=== PATIENT | male | born 1980 | race Caucasian/White ===

== ENCOUNTER 2019-12-09 12:04 | Outpatient (NON) | payer OTHER, SELFPAY ==
[2019-12-09 23:09] LABS: SARS-CoV-2 RNA PCR Negative
== END 2019-12-09 12:05 ==
PROVIDERS: PCP Family Medicine; Visit Provider Physician Assistant
DX: Z20.828 Contact with and (suspected) exposure to other viral communicable diseases (principal)
CPT/HCPCS: 87635; C9803; U0003

== ENCOUNTER 2020-02-07 11:34 | Emergency (ER) | payer OTHER, SELFPAY ==
[2020-02-07 11:45] VITALS: BP 154/77; PULSE 83; RESP 20; TEMP 36.3; O2SAT 98
--- NOTE | 2020-02-07 11:58 | ED.GENADULT ---
HPI - General Adult General Chief complaint: Upper Respiratory Infection Stated complaint: pos sinus infection Source: patient Mode of arrival: ambulatory Limitations: no limitations History of Present Illness HPI narrative: Patient presents for evaluation of sinus congestion for the last week. He states that he has a thick yellow/green mucopurulent drainage from both nares. Is experiencing sore throat, bilateral otalgia and fatigue. He denies any fever, chills, nausea, vomiting, diarrhea. He has experienced a cough but he smokes 1 pack/day. No recent sick exposures. He has a history of recurrent sinusitis that has required antibiotic therapy in the past. He typically uses Flonase and Zyrtec but he is out of both medications. Over the last week he has been using Mucinex and DayQuil with some improvement. He attempted to wait to be seen until it was absolutely necessary. No additional complaints or concerns. He has seen ENT in the past and they indicated that he does not need any type of sinus surgery. They recommended that he do nasal rinses and use Flonase/Zyrtec. Related Data Home Medications Medication Instructions Recorded Confirmed lisinopril 20 mg DAILY 02/07/20 02/07/20 Allergies Allergy/AdvReac Type Severity Reaction Status Date / Time No Known Allergies Allergy Unknown Unverified 03/03/15 17:54 Review of Systems Review of Systems: Narrative: CONSTITUTIONAL: Denies fever, chills, or sweats. EYES: Denies visual changes, redness, or discharge. ENT: Reports sinus congestion with mucopurulent drainage from both nares. Reports sore throat and otalgia bilaterally. CARDIOVASCULAR: Denies chest pain, palpitations, or edema. RESPIRATORY: Reports cough. Denies dyspnea. GASTROINTESTINAL: Denies abdominal pain, nausea, vomiting, or diarrhea. GENITOURINARY: Denies dysuria or hematuria. SKIN: Denies rash or itching. MUSCULOSKELETAL: Denies back pain, joint pain, or myalgia. NEUROLOGIC: Denies headache, numbness, dizziness, or weakness. PSYCHIATRIC: Denies anxiety or depression. [facility] Past Medical History Medical History (Updated 02/07/20 @ 12:03 by Oz Mariee, MACO, RICHI) Hypertension Tobacco use disorder Surgical History Surgical History (Updated 02/07/20 @ 12:00 by Oz Mariee, MACO, ) No pertinent past surgical history Family History Family History Father Hypertension Mother Hyperlipidemia Social History Social History (Updated 02/07/20 @ 12:01 by Oz Mariee [facility], ) Smoking packs per day: 1 Smoking cigarettes per day: 20.0 Smoking status: Current every day smoker Tobacco type: cigarettes Alcohol intake: current Alcohol use details: Socially Substance use: never Living arrangements: alone Gender identity (if verbalized by the patient): Male Spiritual care concerns: No Exam Narrative: Exam Narrative: GENERAL: Well-appearing, well-nourished, and in no acute distress. HEAD: Normocephalic, atraumatic. EYES: PERRLA and EOMI. ENT: Nares clear, no rhinorrhea or epistaxis. Mucous membranes moist. Oropharynx without tonsillar hypertrophy exudate or other lesions. Bilateral TMs pearly doll nonbulging NECK: Supple. No adenopathy or masses. No carotid bruits or JVD CHEST: Clear to auscultation. No respiratory distress. No wheezes rales or rhonchi HEART: Regular rate and rhythm. No murmur heard. Normal peripheral pulses. ABDOMEN: Soft, nontender, nondistended, normal active bowel sounds. EXTREMITIES: Normal range of motion. No edema. SKIN: Warm, dry, no rash. NEURO: No focal deficits. Alert and oriented x3. PSYCH: Normal mood and affect. Course Course Emergency Course: 39-year-old male with history of recurrent sinusitis who presents with symptoms consistent with acute bacterial rhinosinusitis. He has no adventitious lung sounds warranting chest x-ray. Strep was negative. He was advised to
== END 2020-02-07 12:09 | disposition home or self-care (01) ==
PROVIDERS: Emergency Provider Nurse Practitioner; PCP Family Medicine
DX: J01.90 Acute sinusitis, unspecified (principal); F17.210 Nicotine dependence, cigarettes, uncomplicated; I10 Essential (primary) hypertension
CPT/HCPCS: 87081; 87880; 99213; G0463

== ENCOUNTER → 2021-03-27 08:07 | Outpatient (CLI) | payer BC, SELFPAY ==
[2021-03-27 19:02] LABS: SARS-CoV-2 RNA PCR Negative
== END ==
PROVIDERS: PCP Family Medicine; Visit Provider Family Medicine
DX: J06.9 Acute upper respiratory infection, unspecified (principal); R50.9 Fever, unspecified; Z20.822 Contact with and (suspected) exposure to COVID-19
CPT/HCPCS: C9803; U0003; U0005

== ENCOUNTER 2021-06-05 10:50 | Outpatient (CLI) | payer BC, SELFPAY ==
--- NOTE | ~2021-06-05 | US_ITS ---
EXAMINATION: US carotid duplex BI DATE: 06/05/2021 11:21 INDICATION: Right carotid stenosis TECHNIQUE: Grayscale, color Doppler, and pulsed Doppler images of the cervical carotid arteries were obtained. The degree of vessel stenosis is placed in one of the following categories: normal, <50%, 5 0-69%, >=70% but less than near-occlusion, near-occlusion, or total occlusion. Note that percent sten osis relative to normal distal artery lumen diameter is indirectly measured from velocity measurement s as described by Roly, et al. Radiology 2003; 229:[id number]. COMPARISON: None. FINDINGS: RIGHT: The right common carotid artery (CCA) peak systolic velocity (PSV) is 105 cm/s. The right internal ca rotid artery (ICA) PSV is 65 cm/s. The right ICA end-diastolic velocity (EDV) is 16 cm/s. The right I CA/CCA PSV ratio is 0.6. Grayscale and color Doppler images demonstrate no evident stenosis or plaque in the ICA. The external carotid artery (ECA) PSV is 150 cm/s. There is antegrade flow in the right vertebral artery. LEFT: The left CCA PSV is 103 cm/s. The left ICA PSV is 72 cm/s. The left ICA EDV is 14 cm/s. The left ICA/ CCA PSV ratio is 0.7. Grayscale and color Doppler images yield an estimate of <50% diameter reduction from plaque in the ICA. The ECA PSV is 105 cm/s. There is antegrade flow in the left vertebral arter y. IMPRESSION: 1. No evident plaque or stenosis in the right internal carotid artery. 2. No evident plaque or stenosis in the left internal carotid artery. Reviewed, dictated and finalized at location B.
== END 2021-06-05 10:51 | disposition home or self-care (01) ==
LOC: ANHIMG 10:56
PROVIDERS: PCP Family Medicine; Visit Provider Physician Assistant
DX: I65.21 Occlusion and stenosis of right carotid artery (principal)
CPT/HCPCS: 93880

== ENCOUNTER 2022-05-12 11:26 | Emergency (ER) | payer BC, SELFPAY ==
[2022-05-12 11:33] VITALS: BP 149/73; PULSE 79; RESP 16; TEMP 36.2; O2SAT 99
[2022-05-12 11:34] VITALS: BP 149/73; PULSE 79; RESP 16; TEMP 36.2; O2SAT 99
--- NOTE | 2022-05-12 11:48 | ED.URI ---
HPI - URI/Sore Throat General Chief Complaint: Upper Respiratory Infection Stated Complaint: uri Time Seen by Provider: 05/12/22 11:48 Source: patient Mode of arrival: ambulatory Limitations: no limitations History of Present Illness HPI Narrative: 41-year-old male presents with complaint sinus congestion, postnasal drainage, sore throat for 2-3 weeks. Afebrile. Patient states he has been told his primary his primary care physician to take allergy medications but he states that they do not help. He reports he was recently and [place] and had none of the symptoms. He denies chest pain and shortness of breath. currently taking DayQuil NyQuil to treat his symptoms. All systems reviewed and negative except as noted above. Related Data Home Medications Medication Instructions Recorded Confirmed losartan 100 1 tablet PO DAILY 06/20/21 05/12/22 mg-hydrochlorothiazide 12.5 mg tablet triamcinolone acetonide 55 mcg 2 spray intranasal DAILY 05/12/22 05/12/22 nasal spray aerosol (Nasacort) Allergies Allergy/AdvReac Type Severity Reaction Status Date / Time No Known Allergies Allergy Unknown Verified 05/12/22 11:33 Review of Systems Review of Systems: CONSTITUTIONAL: Denies fever, chills, or sweats. reports fatigue. EYES: Denies visual changes, redness, or discharge. ENT: Reports rhinorrhea, congestion, sore throat, or otalgia. CARDIOVASCULAR: Denies chest pain, palpitations, or edema. RESPIRATORY: Denies cough or dyspnea. GASTROINTESTINAL: Denies abdominal pain, nausea, vomiting, or diarrhea. GENITOURINARY: Denies dysuria or hematuria. SKIN: Denies rash or itching. MUSCULOSKELETAL: Denies back pain, joint pain, or myalgia. NEUROLOGIC: Denies headache, numbness, or weakness. PSYCHIATRIC: Denies anxiety or depression. All other systems reviewed are negative, except as documented in HPI. [facility] Past Medical History Medical History (Updated 05/12/22 @ 12:06 by Kathy Stephens NP) Arthritis Congestion of nasal sinus Constipation Coughing Hypertension Lateral epicondylitis Left elbow pain Tobacco use disorder Weight gain Surgical History Surgical History No pertinent past surgical history Family History Family History (Updated 06/29/21 @ 07:46 by Cindy Gee RT(R)) Father Hypertension Mother Hyperlipidemia Other Arthritis Cerebrovascular accident Heart disease Lung disease Social History Social History (Updated 06/29/21 @ 07:46 by Cindy Gee RT(R)) Smoking packs per day: 1 Smoking cigarettes per day: 20.0 Years smoked: 22 Smoking pack-years: 22.00 Smoking status: Current every day smoker Tobacco type: cigarettes Alcohol intake: current Drinks per week: 2 Alcohol use details: Socially Substance use: never Living arrangements: alone Gender identity (if verbalized by the patient): Male Spiritual care concerns: No Comments At time of signature, agree with nursing past medical, surgical, social and family history. There is no relevant family history pertinent to the presenting complaint. Exam Narrative: GENERAL: This is a well-nourished, well-developed patient, in no apparent distress. HEAD: normocephalic, atraumatic. EYES: PERRL. Sclera clear/white. Vision is grossly intact. EARS: External ears normal, auditory canals clear and without drainage, Fluid bilateral TMs, dull light reflex. NOSE: External nose normal with Clear nasal drainage, mild erythema to both nares. Bilateral maxillary and frontal sinus tenderness pain THROAT: Mucous membranes moist, Mild erythema to posterior pharynx with postnasal drainage. NECK: Neck supple, non-tender without lymphadenopathy, masses or thyromegaly. CARDIOVASCULAR: Regular rate and rhythm without murmurs, gallops, or rubs. RESPIRATORY: Clear to auscultation. Breath sounds equal bilaterally. No wheezes, rales, or rhonchi. SKIN: war
== END 2022-05-12 12:10 | disposition home or self-care (01) ==
PROVIDERS: Emergency Provider Nurse Practitioner Family; PCP Family Medicine
DX: J01.90 Acute sinusitis, unspecified (principal)
CPT/HCPCS: 87081; 87880; 99213; G0463

== ENCOUNTER 2023-09-01 11:22 | Emergency (ER) | payer BC, SELFPAY ==
--- NOTE | 2023-09-01 11:24 | ED.URI ---
HPI - URI/Sore Throat General Chief Complaint: Upper Respiratory Infection Stated Complaint: right ear pain/sinus pain Time Seen by Provider: 09/01/23 11:24 Source: patient Mode of arrival: ambulatory Limitations: no limitations History of Present Illness HPI Narrative: Kenn is a 43-year-old male patient presenting to the clinic today with complaints of right ear pain and sinus congestion x2 weeks. He reports he has had a lot of sinus pain and pressure on the right side that also causing some dental pain and right ear pain. No fever or chills. Does have yellow nasal drainage. Has been trying to use a Neti pot and nasal lavage without relief. States he took some Sudafed with some relief however that made him feel as though he was having palpitations. MD elicited complaint: sore throat and nasal congestion Related Data Home Medications Medication Instructions Recorded Confirmed cetirizine 10 mg tablet (Zyrtec) 10 mg PO DAILY 09/28/22 09/01/23 Allergies Allergy/AdvReac Type Severity Reaction Status Date / Time No Known Allergies Allergy Unknown Verified 09/01/23 11:26 Review of Systems Review of Systems: Pertinent positives per HPI. Patient denies any fever, chills, rash, headache, visual changes, dizziness, cough, shortness of breath, chest pain, palpitations, nausea, vomiting, diarrhea, constipation, abdominal pain, or any urinary issues. [facility] Past Medical History Medical History History of bicuspid aortic valve Hypertension Surgical History Surgical History No pertinent past surgical history Family History Family History Father Hypertension Mother Hyperlipidemia Other Arthritis Cerebrovascular accident Heart disease Lung disease Social History Social History Smoking packs per day: 1 Smoking cigarettes per day: 20.0 Years smoked: 22 Smoking pack-years: 22.00 Smoking status: Current every day smoker Tobacco type: cigarettes Alcohol intake: current Drinks per week: 2 Alcohol use details: Socially Substance use: never Lack of Transportation: No Lack of Food: Never True Current Housing: I Have Housing Concerned About Future Housing: No Difficulty Paying Gas/Electric Bills: No Difficulty Paying for Meds: No Currently Unemployed: No Education: High School Diploma/GED Difficulty w/ Childcare or Family Care: No Living arrangements: alone Occupation/Education: occupation Gender identity (if verbalized by the patient): Male Spiritual care concerns: No Comments At the time of my signature, I reviewed and agree with the nursing past medical, surgical, social, and family history. There is no relevant family history pertinent to the patient complaint. Exam Narrative: General: Well-developed, well nourished, in no apparent distress Head: Normocephalic, atraumatic Eyes: Pupils equally round and reactive to light bilaterally, EOM intact, sclera and conjunctive clear, no discharge, lids normal Ears: TMs intact and congested, ear canals clear, no drainage, grossly hearing normal. Nose: Nares patent, yellow nasal discharge, severe inflammation to the right turbinates, right-sided maxillary and ethmoid sinus tenderness. Mouth: Oral pharynx without lesions or masses, good dentition, MMM. Postnasal drip Neck: Supple, trachea midline, no enlargement of anterior or posterior cervical nodes, no thyroid masses or goiter palpable. Cardio: Regular rate and rhythm, s1 and s2 normal, no murmur appreciated. Resp: Clear to auscultation bilaterally, no rhonchi, rales, wheezing or rubs Course Course Emergency Course: Portions of this record may have been created with voice recognition software. Level of Care: Cherie Lugo
[2023-09-01 11:31] VITALS: BP 159/84; PULSE 78; RESP 16; TEMP 36.9; O2SAT 99
== END 2023-09-01 11:47 | disposition home or self-care (01) ==
PROVIDERS: Emergency Provider Nurse Practitioner Family; PCP Family Medicine
DX: J01.90 Acute sinusitis, unspecified (principal); F17.210 Nicotine dependence, cigarettes, uncomplicated; I10 Essential (primary) hypertension; Q23.1 Congenital insufficiency of aortic valve
CPT/HCPCS: 99213; G0463

== ENCOUNTER 2023-10-06 04:43 | Emergency (ER) | payer BC, SELFPAY ==
[2023-10-06] VITALS (9 sets, daily range): BP systolic 134–157; BP diastolic 76–86; PULSE 73–83; RESP 12–19; TEMP 36.5; O2SAT 95–98
--- NOTE | ~2023-10-06 | CT_ITS ---
CT ANGIOGRAM NECK AND HEAD History: Right-sided headache, right facial numbness. Technique: Axial noncontrast imaging of the brain was performed. Serial spiral axial images through t he head and neck were then obtained during arterial phase IV injection of 100 cc of Omnipaque 350. 3- D postprocessing and MIP images were then reconstructed on the remote workstation. Dose reduction zbigniew hnique was used on this scan by utilizing automated exposure control and iterative reconstruction zbigniew hnique. The dose-length product (DLP) was 2025.80 mGy-cm. CTA neck findings: Bilateral vertebral arteries are patent. Bilateral common carotid, internal carot id, and external carotid arteries are patent. No large vessel occlusion or stenosis. No aneurysm seen . The proximal right internal carotid artery demonstrates 0% stenosis relative to the normal distal a rtery lumen diameter. The proximal left internal carotid artery demonstrates 0% stenosis relative to the normal distal artery lumen diameter. CTA head findings: Distal vertebral arteries, basilar artery, and posterior cerebral arteries are pat ent. Distal internal carotid arteries, middle cerebral arteries, and anterior cerebral arteries are p atent. No large vessel occlusion. No stenosis. No aneurysm. Axial noncontrast imaging of the right is unremarkable. No acute infarct, intracranial hemorrhage, or mass lesion seen. Trejo-white differentiation preserved. No mass effect or midline shift. Ventricles and subarachnoid spaces are unremarkable. There is retention cyst or polyp in the right maxillary sin us. Remaining paranasal sinuses and mastoid sinuses are clear. Calvarium intact. Impression: No significant abnormality seen. Reviewed, dictated and finalized at [facility]. Impression: No significant abnormality seen.
[2023-10-06] MEDS: SODIUM CHLORIDE 0.9% IV 1,000 ML 999 ML IV CONT (05:22)
[2023-10-06] MEDS: KETOROLAC 15 MG/ML VIAL (*BKC) IV PUSH (05:24)
[2023-10-06] MEDS: PROCHLORPERAZINE EDISYLATE 10 MG/2 ML VIAL IV PUSH (05:24)
[2023-10-06] MEDS: diphenhydrAMINE HCl INJ 50 MG/ML VIAL IV PUSH (05:24)
[2023-10-06] MEDS: MAGNESIUM SULF 1 GM/D5W 100 ML 1 GM/100 ML BAG IVPB (05:26)
[2023-10-06 05:33] LABS: Basophils Percent Auto 0.6 % (0.2-1.2); Eosinophils Absolute Auto 0.1 K/mm3 (0-0.3); Eosinophils Percent Auto 1.3 % (0-4.4); Hematocrit 44.8 % (42.0-52.0); Hemoglobin 15.4 g/dL (14.0-18.0); Immature Granulocyte Absolute 0.02 K/mm3 (0.00-0.031); Immature Granulocyte Percent A 0.3 % (0-0.5); Lymphocytes Absolute Auto 1.46 K/mm3 (0.9-3.2); Lymphocytes Percent Auto 21.8 % (18.3-44.2); Mean Corpuscular HGB Conc 34.4 g/dl (32-36); Mean Corpuscular Hemoglobin 30.7 pg (26-34); Mean Corpuscular Volume 89.4 fl (80-100); Mean Platelet Volume 9.9 fl (7.4-10.4); Monocytes Absolute Auto 0.5 K/mm3 (0.1-0.6); Monocytes Percent Auto 7.3 % (2.6-8.5); Neutrophils Absolute Auto 4.6 K/mm3 (1.3-6.7); Neutrophils Percent Auto 68.7 % (45.5-73.1); Platelet Count Result 201 k/mm3 (150-375); Red Blood Count 5.01 M/mm3 (4.6-6.20); Red Cell Distribution Width 12.2 % (11.5-14.5); White Blood Count 6.7 K/mm3 (4.5-10.0)
[2023-10-06 05:47] LABS: Alanine Aminotransferase 34 U/L (6-50); Albumin Level 4.6 g/dL (3.5-5.1); Alkaline Phosphatase 53 U/L (38-126); Anion Gap 11 mmol/L (4-12); Aspartate Amino Transferase 27 U/L (17-59); Bilirubin,Total 0.4 mg/dL (0.2-1.3); Blood Urea Nitrogen 13 mg/dL (9-20); Calcium 8.8 mg/dL (8.4-10.2); Carbon Dioxide 22 mmol/L (22-30); Chloride 101 mmol/L (98-107); Estimated CRCL calculation 120 ml/min; Estimated Glomerular Filt Rate > 60; Glucose 100 mg/dL (65-110); Potassium 3.8 mmol/L (3.4-5.0); Sodium 134 mmol/L (137-145)
--- NOTE | 2023-10-06 06:00 | ED.GENADULT ---
HPI - General Adult General Chief complaint: Headache Stated complaint: migraine, tingling, dizziness for 2 weeks Time Seen by Provider: 10/06/23 04:54 History of Present Illness HPI narrative: Patient is a 43-year-old gentleman who presents emergency department with chief complaint of headache. Patient reports the last 2 months he has been having intermittent headaches but for the last 2 weeks he has had a constant headache on the right side of his head the patient reports the pain radiates down into his neck and reports that it is also the right side of his face the patient reports no he started having tingling in the tips of his fingers on the right side patient has seen his primary care provider who was scheduled him for a CT scan but he has not had a CT at. The patient reports that he has attempted taking Tylenol and ibuprofen with no relief the patient does report that the symptoms started after he had a deep tissue massage felt a pop in his left scapular area and then has had several manipulations sessions by a chiropractor. Related Data Allergies Allergy/AdvReac Type Severity Reaction Status Date / Time No Known Allergies Allergy Unknown Verified 10/06/23 04:52 Review of Systems Review of Systems: A 10 system review of systems was completed on the patient and is negative except for what is stated in the HPI. Nursing and ancillary documentation was reviewed. [facility] Past Medical History Medical History History of bicuspid aortic valve Hypertension Surgical History Surgical History No pertinent past surgical history Family History Family History Father Hypertension Mother Hyperlipidemia Other Arthritis Cerebrovascular accident Heart disease Lung disease Social History Social History Smoking packs per day: 1 Smoking cigarettes per day: 20.0 Years smoked: 22 Smoking pack-years: 22.00 Smoking status: Current every day smoker Tobacco type: cigarettes Alcohol intake: current Drinks per week: 2 Alcohol use details: Socially Substance use: never Lack of Transportation: No Lack of Food: Never True Current Housing: I Have Housing Concerned About Future Housing: No Difficulty Paying Gas/Electric Bills: No Difficulty Paying for Meds: No Currently Unemployed: No Education: High School Diploma/GED Difficulty w/ Childcare or Family Care: No Living arrangements: alone Occupation/Education: occupation Gender identity (if verbalized by the patient): Male Spiritual care concerns: No Exam Narrative: GENERAL: Well-appearing, well-nourished, and in no acute distress. HEAD: Normocephalic, atraumatic. EYES: PERRLA and EOMI. ENT: Nares clear, no rhinorrhea or epistaxis. Mucous membranes moist. NECK: Supple. CHEST: Clear to auscultation. No respiratory distress. HEART: Regular rate and rhythm. No murmur heard. Normal peripheral pulses. ABDOMEN: Soft, nontender, nondistended, normal active bowel sounds. EXTREMITIES: Normal range of motion. No edema. SKIN: Warm, dry, no rash. NEURO: No focal deficits. Alert and oriented x3. PSYCH: Normal mood and affect. Course Vital Signs Vital signs: Vital Signs Temperature 36.5 C 10/06/23 04:47 Pulse Rate 77 10/06/23 04:47 Respiratory Rate 15 10/06/23 04:47 Blood Pressure 157/86 H 10/06/23 04:47 Pulse Oximetry 98 10/06/23 04:47 Oxygen Delivery Room Air 10/06/23 04:47 Temperature 36.5 C 10/06/23 04:47 Pulse Rate 78 10/06/23 06:16 Respiratory Rate 15 10/06/23 06:16 Blood Pressure 134/84 10/06/23 06:16 Pulse Oximetry 95 10/06/23 06:16 Oxygen Delivery Room Air 10/06/23 04:47 Medical Decision Making [facility] Narrative [facility]
== END 2023-10-06 06:51 | disposition home or self-care (01) ==
PROVIDERS: Emergency Provider Emergency Medicine; PCP Family Medicine
DX: R51.9 Headache, unspecified (principal); I10 Essential (primary) hypertension; F17.210 Nicotine dependence, cigarettes, uncomplicated
CPT/HCPCS: 36415; 70496; 70498; 80053; 85025; 96365; 96375; 99284; J0780; J1200; J1885; J3475; J7030; Q9967

== ENCOUNTER 2023-10-18 09:09 | Outpatient (CLI) | payer BC, SELFPAY ==
--- NOTE | 2023-10-18 09:10 | EST_ITS ---
Patient Info Name: Kenn Schuster Age: 43 years : 1980 Gender: Male Ht: 74 in Wt: 240 lbs BSA: 2.41 m2 HR: 74 bpm BP: 136 / 78 mmHg Exam Date: 10/18/2023 9:26 AM Exam Location: Echo Lab Patient Status: Outpatient Admit Date: 10/18/2023 Staff Ordering Physician: Shannan Soni Attending Provider: Shannan Soni Exercise Technologist: Lizzie Chung [facility] Exercise Physician: Coleman Coon DO Exam Type: CA stress test treadmill Study Info A treadmill exercise stress test was performed. Summary 1. 1. Negative Shyam exercise stress test for ischemic ST changes by ECG criteria. 2. 2. Reduced functional capacity, achieving 10 METs of workload. 3. 3. Appropriate HR response to exercise. 4. 4. Appropriate HR recovery at 1 minute post exercise. 5. 5. No imaging with stress testing. 6. 6. Patient informed of the above results. Protocol: Shyam Stress ECG Details Stage: REST Duration (min): 1 min : 5 sec Speed (mph): 0.0 Grade (%): 0 HR (bpm): 75 SBP (mmHg): 136 DBP (mmHg): 78 METS: --- Stage: REST Duration (min): 4 min : 14 sec Speed (mph): 0.0 Grade (%): 0 HR (bpm): 82 SBP (mmHg): 136 DBP (mmHg): 78 METS: --- Stage: STAGE 1 Duration (min): 1 min : 0 sec Speed (mph): 1.7 Grade (%): 10 HR (bpm): 106 SBP (mmHg): 136 DBP (mmHg): 78 METS: --- Stage: STAGE 1 Duration (min): 2 min : 0 sec Speed (mph): 1.7 Grade (%): 10 HR (bpm): 111 SBP (mmHg): 136 DBP (mmHg): 78 METS: --- Stage: STAGE 1 Duration (min): 3 min : 0 sec Speed (mph): 1.7 Grade (%): 10 HR (bpm): 113 SBP (mmHg): 169 DBP (mmHg): 55 METS: --- Stage: STAGE 2 Duration (min): 1 min : 0 sec Speed (mph): 2.5 Grade (%): 12 HR (bpm): 120 SBP (mmHg): 169 DBP (mmHg): 55 METS: --- Stage: STAGE 2 Duration (min): 2 min : 0 sec Speed (mph): 2.5 Grade (%): 12 HR (bpm): 124 SBP (mmHg): 188 DBP (mmHg): 67 METS: --- Stage: STAGE 2 Duration (min): 3 min : 0 sec Speed (mph): 2.5 Grade (%): 12 HR (bpm): 127 SBP (mmHg): 188 DBP (mmHg): 67 METS: --- Stage: STAGE 3 Duration (min): 1 min : 0 sec Speed (mph): 3.4 Grade (%): 14 HR (bpm): 139 SBP (mmHg): 189 DBP (mmHg): 63 METS: --- Stage: STAGE 3 Duration (min): 2 min : 0 sec Speed (mph): 3.4 Grade (%): 14 HR (bpm): 149 SBP (mmHg): 189 DBP (mmHg): 63 METS: --- Stage: STAGE 3 Duration (min): 3 min : 0 sec Speed (mph): 3.4 Grade (%): 14 HR (bpm): 156 SBP (mmHg): 202 DBP (mmHg): 69 METS: --- Stage: STAGE 4 Duration (min): 0 min : 1 sec Speed (mph): 4.2 Grade (%): 16 HR (bpm): 156 SBP (mmHg): 202 DBP (mmHg): 69 METS: --- Stage: RECOVERY Duration (min): 0 min : 59 sec Speed (mph): 0.0 Grade (%): 0 HR (bpm): 122 SBP (mmHg): 202 DBP (mmHg): 69 METS: --- Stage: RECOVERY
== END 2023-10-18 09:10 | disposition home or self-care (01) ==
LOC: ANHCARD 09:09
PROVIDERS: PCP Family Medicine; Visit Provider Physician Assistant
DX: R06.02 Shortness of breath (principal)
CPT/HCPCS: 93017

== ENCOUNTER 2024-03-22 10:37 | Emergency (ER) | payer BC, SELFPAY ==
--- NOTE | ~2024-03-22 | XR_ITS ---
CHEST RADIOGRAPH, PA AND LATERAL CLINICAL HISTORY: cough and fever x 2.5 weeks . COMPARISON: 04/07/2013 TECHNIQUE: PA and lateral views of the chest. FINDINGS The cardiomediastinal silhouette is unremarkable. The lungs are clear. Visualized osseous structures and soft tissues are unremarkable. IMPRESSION: No focal infiltrate or effusion. Reviewed, dictated and finalized at location A. [employer]IC[employer]
--- NOTE | 2024-03-22 10:50 | ED_ITS ---
HPI - URI/Sore Throat General Chief Complaint: Upper Respiratory Infection Stated Complaint: Sinus Time Seen by Provider: 03/22/24 10:39 Source: patient Mode of arrival: ambulatory Limitations: no limitations History of Present Illness HPI Narrative: Kenn is a 43-year-old male patient presenting to the clinic today with complaints productive cough bringing up brown phlegm, nasal congestion, chest congestion, sinus drainage, cough worsens when lying flat, fever, and body aches. Symptoms have been going off and on for the past 2.5 months. Has been taking multiple [id number] her medications such as DayQuil/NyQuil, Mucinex, and TheraFlu with minimal relief. Patient is a current cigarette smoker. MD elicited complaint: fever, cough, nasal congestion, sinus pain and other Related Data Allergies Allergy/AdvReac Type Severity Reaction Status Date / Time No Known Allergies Allergy Unknown Verified 03/22/24 10:41 Review of Systems Review of Systems: Pertinent positives per HPI. Patient denies any rash, headache, visual changes, dizziness,chest pain, palpitations, nausea, vomiting, diarrhea, constipation, abdominal pain, or any urinary issues. [facility] Past Medical History Medical History History of bicuspid aortic valve Hypertension Surgical History Surgical History No pertinent past surgical history Family History Family History Father Hypertension Mother Hyperlipidemia Other Arthritis Cerebrovascular accident Heart disease Lung disease Social History Social History Smoking packs per day: 1 Smoking cigarettes per day: 20.0 Years smoked: 22 Smoking pack-years: 22.00 Smoking status: Current every day smoker Tobacco type: cigarettes Alcohol intake: current Drinks per week: 2 Alcohol use details: Socially Substance use: never Lack of Transportation: No Lack of Food: Never True Current Housing: I Have Housing Concerned About Future Housing: No Difficulty Paying Gas/Electric Bills: No Difficulty Paying for Meds: No Currently Unemployed: No Education: High School Diploma/GED Difficulty w/ Childcare or Family Care: No Living arrangements: alone Occupation/Education: occupation Gender identity (if verbalized by the patient): Male Spiritual care concerns: No Comments At the time of my signature, I reviewed and agree with the nursing past medical, surgical, social, and family history. There is no relevant family history pertinent to the patient complaint. Exam Narrative: General: Well-developed, well nourished, acutely ill appearing Head: Normocephalic, atraumatic Eyes: Pupils equally round and reactive to light bilaterally, EOM intact, sclera and conjunctive clear, no discharge, lids normal Ears: TMs intact and congested, ear canals clear, no drainage, grossly hearing normal. Nose: Nares patent, green nasal discharge, moderate inflammation, maxillary and frontal sinus tenderness. Mouth: Oral pharynx without lesions or masses, good dentition, MMM. Postnasal drip Neck: Supple, trachea midline, no enlargement of anterior or posterior cervical nodes, no thyroid masses or goiter palpable. Cardio: Regular rate and rhythm, s1 and s2 normal, no murmur appreciated. Resp: Lung sounds diminished, no rhonchi, rales, wheezing or rubs Course Course Emergency Course: Portions of this record may have been created with voice recognition software. Level of Care: Express Care Visit Vital Signs Vital signs: Vital Signs Temperature 36.5 C 03/22/24 10:53 Pulse Rate 80 03/22/24 10:53 Respiratory Rate 16 03/22/24 10:53 Blood Pressure 148/80 H 03/22/24 10:53 Pulse Oximetry 95 03/22/24 10:53 Oxygen Delivery Room Air 03/22/24 10:53 Temperature 36.5 C 03/22/24 10:53 Pulse Rate 80 03/22/24 10:53 Respiratory Rate 16 03/22/24 10:53 Blood Pressure 148/80 H 03/22/24 10:53 Pulse Oximetry 95 03/22/24 10:53 Oxygen Delivery Room Air 03/22/24 10:53 Vital signs reviewed MDM - URI/Sore Throat MDM Narrative Medical decision making narrative: At the time of visit patient is resting comfortably on the exam table. Patient appears to be nontoxic. Diagnostics: Chest x-ray was performed and negative for any acute cardiopulmo nary process. Plan: Patient has had symptoms for 2 and half months as lung sounds are diminished. Will cover him for sinus infection/lower respiratory infection. Was placed on doxycycline, prednisone, and albuterol inhaler. Supportive measures were discussed with the patient and they voiced understanding discharge instructions and agrees to treatment plan. Return precautions reviewed Differential Diagnosis Differential diagnosis: Likely upper respiratory infection, otitis media, sinusitis, viral infection, bronchitis, influenza, pharyngitis and other (COVID, pneumonia, lung cancer) Imaging Data Radiologist's impression: ITS Impressions Chest X-Ray 03/22/24 12:01 IMPRESSION: No focal infiltrate or effusion. Discharge Plan Discharge Clinical Impression: Acute bacterial rhinosinusitis, Acute lower respiratory tract infection Patient Disposition: Home, Self-Care Condition: Stable Instructions: Antibiotic Form, Acute Bronchitis (ED), Rhinosinusitis (ED) Additional Instructions: Take prescription medications only as prescribed-doxycycline, prednisone, and albuterol inhaler Increase fluids and stay well hydrated Tylenol/motrin for pain/fever Flonase and OTC antihistamines as directed Vicks vapor rub to open sinuses Sinus rinses for congestion Cepacol spray, cough drops, throat lozenges, warm tea with honey/lemon, gargle salt water to soothe throat BRAT diet for diarrhea Clear liquids x 24 hours then advance as tolerated for nausea/vomiting Go to the ED if you develop a worsening in your condition- high fever not controlled by Tylenol or Motrin, dehydration, weakness, lethargy, shortness of breath, or chest pain. Follow up with your PCP in 3-5 days if symptoms persist. Patient Language: Citizen Of [place] Prescriptions: New prednisone 20 mg tablet 40 mg PO DAILY 5 Days Qty: 10 0RF doxycycline monohydrate 100 mg capsule 100 mg PO BID 10 Days Qty: 20 0RF albuterol sulfate 90 mcg/actuation HFA aerosol inhaler 2 puff inhalation Q4-6H PRN (Reason: shortness of breath or wheezing) 30 Days Qty: 8.5 0RF No Action losartan-hydrochlorothiazide 100-12.5 mg tablet 1 tablet PO DAILY 90 Days Qty: 90 3RF verapamil 240 mg capsule,ext rel. pellets 24 hr 240 mg PO DAILY 30 Days Qty: 30 5RF sumatriptan succinate 100 mg tablet See Rx Instructions PO .COMPLEX Qty: 10 0RF Rx Instructions: take 1 tab at onset of headache; if no relief, may repeat 1 tab after at least 2 hrs; max = 2 tabs/24 hrs PO Follow-up/Referrals: Steven Peace MD [Primary Care Provider] - Time of Disposition: 12:00 Quality NIHSS Nursing Documentation ED NIHSS nursing documentation: reviewed/agree
[2024-03-22 10:53] VITALS: BP 148/80; PULSE 80; RESP 16; TEMP 36.5; O2SAT 95
--- NOTE | 2024-03-22 12:13 | PC.NURSE ---
12:13- Called patient and informed him that his chest X-ray came back Negative. Stay on all medications as prescribed.
== END 2024-03-22 12:05 | disposition home or self-care (01) ==
PROVIDERS: Emergency Provider Nurse Practitioner Family; PCP Family Medicine
DX: J01.90 Acute sinusitis, unspecified (principal); J22 Unspecified acute lower respiratory infection; F17.210 Nicotine dependence, cigarettes, uncomplicated; I10 Essential (primary) hypertension; Q23.81 Bicuspid aortic valve
CPT/HCPCS: 71046; 99213; G0463